=== PATIENT | female | born 1960 | race Caucasian/White ===

== ENCOUNTER 2021-01-02 22:24 | Emergency (ER) | payer MEDICARE, OTHER ==
[~2021-01-02 22:24] MED LIST: ASPIRIN EC81 M1 PO; ATARAX25 MG PO; BUSPAR5 MG PO; CARDIZEM LA180 MG PO; CELEXA20 MG PO; DILTIAZEM 24HR180 M1 PO; DULERA 100 MCG8.8 GM PO; DUONEB 2.5-0.5M1 AMP NEB; LEVAQUIN750 MG PO; LOPRESSOR25 MG PO; PRILOSEC20 MG PO; RISPERDAL 1MG TA1 MG PO; VENTOLIN HFA IN18 GM INH; ZPAK PO
[2021-01-02 22:45] LABS: HCT 40.8 % (37.0-47.0); HGB 14.1 g/dl (12.5-16.0); MCH 32.9 pg (25.0-31.0); MCHC 34.6 g/dL (32.0-36.0); MCV 95.3 fL (78.0-100.0); RBC 4.28 M/uL (4.20-5.40); RDW 12.4 % (11.5-14.0); WBC 11.1 K/uL (4.0-10.5)
[2021-01-02 23:21] LABS: ALBUMIN 3.5 g/dL (3.4-5.0); ALKALINE PHOSHATASE 111 U/L (46-116); ALT 17 U/L (14-59); AST 11 U/L (15-37); BILIRUBIN - TOTAL 0.2 mg/dL (0.2-1.0); BUN 9 mg/dL (7-18); BUN/CREAT RATIO (CALC) 13.6 RATIO; CHLORIDE 98 mmol/L (98-107); CO2 (BICARBONATE) 27 mmol/L (21-32); CREATININE 0.66 mg/dL (0.51-0.95); GLOBULIN (CALCULATION) 3.1 g/dL; GLUCOSE 145 mg/dL (74-106); POTASSIUM 3.7 mmol/L (3.5-5.1); TOTAL PROTEIN 6.6 g/dL (6.4-8.2)
[2021-01-02 23:22] LABS: ACETAMINOPHEN (TYLENOL) < 2.0 ug/mL (10.0-30.0)
== END 2021-01-03 16:40 | disposition other institution (70) ==
LOC: FER 22:24
PROVIDERS: Emergency Medicine
DX: T44.7X2A Poisoning by beta-adrenoreceptor antagonists, intentional self-harm, initial encounter (principal); T46.1X2A Poisoning by calcium-channel blockers, intentional self-harm, initial encounter; F32.9 Major depressive disorder, single episode, unspecified; F17.200 Nicotine dependence, unspecified, uncomplicated; F20.9 Schizophrenia, unspecified; Z79.899 Other long term (current) drug therapy; Z88.8 Allergy status to other drugs, medicaments and biological substances; Z20.822 Contact with and (suspected) exposure to COVID-19; Y92.9 Unspecified place or not applicable
CPT/HCPCS: 36415; 71045; 80053; 84484; 93005; G0480; J7030; U0002